=== PATIENT | male | born 1945 | race Caucasian/White ===

== ENCOUNTER → 2019-04-28 | Day surgery (SDC) | payer MEDICARE ==
[~2019-04-28] VITALS: Ht 175.3 cm; Wt 90.7 kg
[~2019-04-28] MED LIST: AMLODIPINE BESYL5 MG PO; EYE LUBRICANT OU; FENTANYL CITRATE/PF 100MCG/2 ML INJ ONE; IOPAMIDOL 300MG/ML 100 ML INFUS..BTL IV ONE; LEVOTHYROXINE75 MCG PO; LIDOCAINE HCL 2% LOCAL 20 ML VIAL ONE; LISINOPRIL10 MG PO; MIDAZOLAM HCL 2 MG/2 ML VIAL ONE; PEPCID20 MG PO; SODIUM CHLORIDE 0.9% 1000ML 2,000 ML ONE; SPIRONOLACTONE25 MG PO; TRAVATAN Z5 ML OU; TRIAMCINOLONE A15 G1 TOP; VITAMIN B-121000 MCG PO; VITAMIN D1000 UNI1 PO
--- OUTSIDE RECORDS SUMMARY | 2019-04-28 11:06 | XMS REPORT ---
Author [facility] Address Unknown Phone Unavailable Care Team Providers Care Cardiovascular Surgeon Name Role Phone Unavailable Unavailable Payers Payer Name Policy Type Policy Number Effective Date Expiration Date Problems This patient has no known problems. Allergies, Adverse Reactions, Alerts Allergy Name Allergy Type Status Severity Reaction(s) Onset Date Inactive Date Treating Clinician Comments levofloxacin DA Active SV 2016-04-12 00:00:00 Medications This patient has no known medications. Results Test Description Test Time Test Comments Text Results Atomic Results Result Comments - XR CYSTOURETHRO RETRO 2019-03-13 13:11:00 FAX: Giovani Brenner MD [phone] [place]: St: REG Name: KEARNEYASA [facility] : 1945 Age/S: 74/M [address] [place] [address] Unit #: [id number] Loc: [place] [address] Phys: Giovani Gayle MD Acct: [id number] Dis Date: Status: REG [facility] PHONE #: [phone] Exam Date: 03/13/2019 1235 FAX #: [phone] Reason: URETRA STRICTURE EXAMS: CPT CODE: [id number] XR CYSTOURETHRO RETRO 43173 FLUOROSCOPY ASSISTANCE FOR CYSTOGRAM 03/13/2019 AT 1207 HOURS. CLINICAL HISTORY: Urethral stricture. COMPARISONS: Abdomen CT 07/22/2018. FINDINGS: Fluoroscopy assistance was provided for the urology service during retrograde cystoscopy. 6 endoscopic spot views were obtained showing insertion of a bladder wire and no evidence of contrast injection in the submitted images. Correlate with intraprocedure findings. By report, the bladder could not be filled with contrast after repeated attempts. The procedure was then aborted. IMPRESSION: 1. Fluoroscopy assistance for cystogram attempt as described. Intraprocedural fluoroscopy was provided by the Department of Radiology. Any images obtained were interpreted by the Surgeon intraoperatively. Total reported active fluoroscopy time was approximately 17 seconds. Dose (Air Kerma): 7.02 mGy SL: [id number] at 1311 Reported and signed by: Joss Stanford M.D. CC: Giovani Gayle MD Technologist: RT Papito(R) Trnscrd Date/Time/By: 03/13/2019 (3058) : By: [email or web address] Orig Print D/T: S: 03/13/2019 (3786) PAGE 1 Signed Report - XR CHEST 2 V 2019-03-11 11:17:00 FAX: Giovani Brenner MD [phone] [place]: St: PRE Name: ASA KEARNEY JR [facility] : 1945 Age/S: 74/M [address] [place] [address] Unit #: [id number] Loc: [place] [address] Phys: Giovani Gayle MD Acct: [id number] Dis Date: Status: PRE SDC PHONE #: [phone] Exam Date: 03/11/2019 1015 FAX #: [phone] Reason: URETHRAL STRICTURE EXAMS: CPT CODE: [id number] XR CHEST 2 V 99204 CHEST TWO VIEW HISTORY: Urethral stricture, UTI. Comparison made to prior chest x-ray dated 07/22/18. FINDINGS: The lungs are clear. The heart size and pulmonary vascularity are normal. Bony thorax shows no acute abnormality. The left hemidiaphragm is chronically elevated. Incidental left shoulder calcific tendinitis noted. IMPRESSION: 1. No active infiltrate. 2. Chronic elevation of the left hemidiaphragm, stable. 3. Calcific tendinitis of the left shoulder noted. SL:01 at 1117 Reported and signed by: Anthony Musa M.D. CC: Giovani Gayle MD Technologist: RT Ariela(R) Trnscrd Date/Time/By: 03/11/2019 (1117) : By: Chandler Orig Print D/T: S: 03/11/2019 (1129) PAGE 1 Signed Report BASIC METABOLIC PANEL 2019-03-11 09:18:00 SODIUM (test code=NA) 139 mEq/L 134-147 POTASSIUM (test code=K) 4.7 mEq/L 3.4-5.0 CHLORIDE (test code=CL) 107 mEq/L 100-108 CARBON DIOXIDE (test code=CO2) 26 mEq/L 21-33 ANION GAP (test code=GAP) 11 0-20 GLUCOSE (test code=GLU) 115 mg/dL 70-110 BLOOD UREA NITROGEN (test code=BUN) 21 mg/dL 7-18 GLOMERULAR FILTRATION RATE (test code=GFR) 73.5 70-80 Units of measure=ml/min/1.73 m2 CREATININE (test code=CREAT) 1.0 mg/dL 0.6-1.3 CALCIUM (test code=CA) 9.1 mg/dL 8.0-10.5 CBC W/AUTO [id number] 09:05:00* Test Item Value Reference Range Comments WHITE BLOOD CELL (test code=WBC) 7.63 x10 3/uL 4.5-11.0 RED BLOOD CELL (test code=RBC) 4.40 x10 6/uL 4.00-5.60 HEMOGLOBIN (test code=HGB) 14.0 g/dL 12.5-16.9 HEMATOCRIT (test code=HCT) 43.1 % 37.5-50.7 MEAN CELL VOLUME (test code=MCV) 98.0 fL 81.0-99.0 MEAN CELL HGB (test code=MCH) 31.8 pg 27.0-33.0 MEAN CELL HGB CONCETRATION (test code=MCHC) 32.5 g/dL 33.0-37.0 RED CELL DISTRIBUTION WIDTH CV (test code=RDW) 12.8 % 11.5-14.5 RED CELL DISTRIBUTION WIDTH SD (test code=RDW-SD) 46.1 fL 37.0-54.0 PLATELET COUNT (test code=PLT) 237 x10 3/uL 150-400 MEAN PLATELET VOLUME (test code=MPV) 11.5 fL 7.0-9.0 NEUTROPHIL % (test code=NT%) 68.8 % 56.0-77.0 IMMATURE GRANULOCYTE % (test code=IG%) 0.5 % 0.0-2.0 LYMPHOCYTE % (test code=LY%) 16.1 % 14.0-32.0 MONOCYTE % (test code=MO%) 11.3 % 4.8-9.0 EOSINOPHIL % (test code=EO%) 2.8 % 0.3-3.7 BASOPHIL % (test code=BA%) 0.5 % 0.0-2.0 NUCLEATED RBC % (test code=NRBC%) 0.0 % 0-0 NEUTROPHIL # (test code=NT#) 5.25 x10 3/uL 2.0-7.6 IMMATURE GRANULOCYTE # (test code=IG#) 0.04 x10 3/uL 0.00-0.03 LYMPHOCYTE # (test code=LY#) 1.23 x10 3/uL 1.0-3.8 MONOCYTE # (test code=MO#) 0.86 x10 3/uL 0.1-0.8 EOSINOPHIL # (test code=EO#) 0.21 x10 3/uL 0.0-0.2 BASOPHIL # (test code=BA#) 0.04 x10 3/uL 0.0-0.2 NUCLEATED RBC # (test code=NRBC#) 0.00 x10 3/uL 0.0-0.1 MANUAL DIFF REQUIRED (test code=MDIFF) NO
[2019-04-28 13:03] LABS: INR 0.98; PROTHROMBIN TIME 13.5 seconds (11.9-14.5)
[2019-04-28 13:04] LABS: PARTIAL THROMBOPLASTIN TIME 39.4 seconds (23.8-35.5)
[2019-04-28 15:00] VITALS: BP 140/56
--- NOTE | 2019-04-28 15:00 | NUR ---
1500pm received pt from laboratory supervisor report from Martin PICKETT. No conscious sedation used. Lidocaine used. Back to baseline orientation. Does have critical care unit manager due to hx dementia. 500cc clear pink urine in supra pubic bag. Tegaderm and gauze dressing site dry and intact.Caregiver/ Friend at bedside signed dc papers aware of importance of f/o and POC of pt's new supra pubic tube. Called medical power of commercial attorney [facility] per Dr. Edgar's request.With his initial call back no answer per MD. Procedure completed and copies of dc and procedural info. given to [facility] for [facility].Pt in no distress vs stable no gross issues pain, pallor , pressure or dysrhythmia. Escorted to [facility] in front lobby in w/c with rn palliative care on escort. Iv was removed COBAN 2x2 dressing [address] No bleeding issues. ds/rn
[2019-04-28 15:15] VITALS: BP 144/56
--- NOTE | 2019-04-28 16:38 | Diagnostic Imaging Report ---
Exam: Ultrasound guidance for suprapubic catheter placement. History: Patient with a urethral stricture. Comparison: None available Findings: The bladder is moderately filled. Ultrasound was utilized for suprapubic catheter placement with placement of a needle in the inferior aspect of the bladder. Images were obtained and stored to the medical record. Impression: Ultrasound guidance for suprapubic catheter placement. Signed by: Dr. Jeremiah Edgar DO on 04/28/2019 4:35 PM
--- NOTE | 2019-04-30 07:42 | Diagnostic Imaging Report ---
Exam: Suprapubic urinary bladder catheter placement. History: Urethral stricture Comparison: None available Findings: Informed consent was obtained from the [facility] power of securities attorney. Sterile preparation with local anesthesia utilizing 1% Xylocaine. Ultrasound was utilized for guidance to place an 18-gauge needle into the bladder. This was followed by a 0.035 " Amplatz superstiff wire. Dilatation was then accomplished to [address] [place]. A 0.035 " Advantage wire was then placed and the tract dilated with an 8 mm x 8 cm angioplasty balloon. An [address] [place] tip [place] catheter was then advanced over the wire into the bladder. Catheter was secured to the skin with 2-0 silk. Patient tolerated the procedure well. Fluoroscopy time: 1.4 minutes Dose area product: 668.2 cGycm2 Impression: Successful suprapubic catheter placement into the bladder utilizing ultrasound and fluoroscopic guidance. Signed by: Dr. Jeremiah Edgar DO on 04/30/2019 7:39 AM
== END | disposition home or self-care (01) ==
LOC: CATH LAB 11:04 → EDSTATUS 14:00
PROVIDERS: ATTEND Urology
DX: N35.919 Unspecified urethral stricture, male, unspecified site (principal); Z88.1 Allergy status to other antibiotic agents; N39.0 Urinary tract infection, site not specified; N31.9 Neuromuscular dysfunction of bladder, unspecified; N40.1 Benign prostatic hyperplasia with lower urinary tract symptoms; I10 Essential (primary) hypertension; G89.29 Other chronic pain
CPT/HCPCS: 36415; 51102 ×2; 76942; 85610; 85730; C1725; C1769; J2001; J7030; Q9967; J2250; J3010